=== PATIENT | male | born 1950 | race Caucasian/White ===

== ENCOUNTER 2024-11-16 08:44 | Outpatient (CLI) | payer OTHER, SELFPAY ==
[2024-11-16 09:14] LABS: Appearance Urine Clear (Clear); Bilirubin Urine Negative (Negative); Blood Urine Trace-intact (Negative); Color Urine Yellow (Yellow); Glucose Urine Negative (Negative); Ketones Urine Negative (Negative); Leukocyte Esterase Urine Negative (Negative); Nitrite Urine Negative (Negative); Protein Urine 1+ (Negative); Specific Gravity Urine 1.025 (1.000-1.030); Urobilinogen Urine 0.2 (0.2-1.0); pH Urine 5.5 (5.0-8.5)
[2024-11-16 09:22] LABS: Albumin* 4.5 g/dL (3.3-5.0)
[2024-11-16 09:23] LABS: Chloride* 106 mmol/L (96-114); Potassium* 4.4 mmol/L (3.6-5.1); Sodium* 138 mmol/L (135-149)
[2024-11-16 09:25] LABS: Bilirubin Total* 1.8 mg/dL (0.1-1.5); Estimated Glomerular Filt Rate 78 ml/min
[2024-11-16 09:26] LABS: Alanine Aminotransferase* 23 U/L (4-50); Alkaline Phosphatase* 65 U/L (40-150); Anion Gap 12 mEq/L (7-15); Aspartate Amino Transferase* 28 U/L (12-35); Blood Urea Nitrogen* 14 mg/dL (7-30); Calcium* 9.3 mg/dL (8.4-10.6); Carbon Dioxide* 20 mmol/L (20-32); Glucose* 105 mg/dL (60-115); Total Protein* 7.4 g/dL (6.0-8.3)
[2024-11-16 09:32] LABS: RBC Urine 0-2 (0-2); WBC Urine 0-2 (0-5)
== END 2024-11-16 08:45 | disposition home or self-care (01) ==
PROVIDERS: PCP Chiropractor; Visit Provider Chiropractor
DX: E11.9 Type 2 diabetes mellitus without complications (principal)
CPT/HCPCS: 36415; 80053; 81001; 81003